=== PATIENT | female | born 1985 | race Caucasian/White ===

== ENCOUNTER 2018-04-29 22:44 | Inpatient (IN) ==
[2018-04-30] MEDS ORDERED: MEPERIDINE 50 MG/1 ML VIAL IV PRN (07:55)
[2018-04-30] MEDS ORDERED: BUTORPHANOL 2 MG/ML VIAL IV PRN (07:55)
[2018-04-30] MEDS ORDERED: ONDANSETRON 4 MG/2 ML VIAL IV PRN (07:55)
[2018-04-30] MEDS ORDERED: AMPICILLIN INJ 2,000 MG in SODIUM CHLORIDE 0.9% 100 ML IV SCH (08:00)
[2018-04-30 08:26] LABS: Basophils % 0.2 % (0.0-0.8); Eosinophils % 0.7 % (0.00-10.9); Hematocrit 29.9 VOL% (35.7-47.0); Hemoglobin 9.3 GM/DL (12.0-16.0); Immature Granulocytes % 1.4 %; Immature Granulocytes Absolute 0.08 #; Lymphocytes # 0.9 10*3/uL (1.4-4.0); Lymphocytes % 16.5 % (21.3-54.2); Mean Corpuscular HGB Conc 31.1 GM/DL (32-36); Mean Corpuscular Hemoglobin 26 PG (27-34); Mean Corpuscular Volume 83.8 FL (87-102); Mean Platelet Volume 11.5 FL (9.6-12.0); Monocytes # 0.5 10*3/uL (0.11-0.8); Monocytes % 8.1 % (1.7-12.7); Neutrophils # 4.2 10*3/uL (1.4-7.4); Neutrophils % 73.1 % (38.7-73.9); Platelet Count 166 T/CUMM (130-400); Red Blood Count 3.57 MC/CUMM (3.8-5.5); Red Cell Distribution Width 17.7 % (9.3-17.3); White Blood Count 5.7 T/CUMM (4-12)
[2018-04-30] MEDS: LACTATED RINGERS 1,000 ML IV SCH ×3 (08:40→16:35)
[2018-04-30] MEDS: OXYTOCIN/LR 20 UNIT/1,000 ML BAG IV SCH (09:20)
[2018-04-30] MEDS ORDERED: ONDANSETRON 4 MG/2 ML VIAL IV ONE (12:01)
[2018-04-30] MEDS ORDERED: ePHEDrine 50 MG/ML AMP IV PRN (12:01)
[2018-04-30] MEDS ORDERED: diphenhydrAMINE 50 MG/1 ML VIAL IV PRN ×2 (12:01)
[2018-04-30] MEDS ORDERED: FAMOTIDINE 20 MG/2 ML VIAL IV ONE (12:01)
[2018-04-30] MEDS ORDERED: hydrOXYzine HCL 25 MG/1 ML VIAL IM PRN (12:01)
[2018-04-30] MEDS ORDERED: LACTATED RINGERS 1,000 ML IV ONE (12:01)
[2018-04-30] MEDS ORDERED: CITRIC ACID/SODIUM CITRATE 30 ML UDCUP PO ONE (12:01)
[2018-04-30] MEDS ORDERED: PROMETHAZINE 25 MG/1 ML VIAL IM ONE (12:01)
[2018-04-30] MEDS ORDERED: fentaNYL 2 MCG/ROPIV 0.2% EPID 150 ML EPIDURAL SCH (12:30)
[2018-04-30] MEDS: AMPICILLIN INJ 1,000 MG in SODIUM CHLORIDE 0.9% 100 ML IV SCH ×3 (13:03→22:48)
[2018-04-30] MEDS ORDERED: LIDOCAINE 1% 50 ML VIAL ONE (20:09)
[2018-04-30] MEDS ORDERED: miSOPROStol 200 MCG TABLET ONE (20:09)
[2018-04-30] MEDS ORDERED: METHYLERGONOVINE 0.2 MG/1 ML AMP ONE (20:10)
[2018-04-30 20:57] LABS: Apearance,Urine CLEAR (Clear); Bacteria,Urine Occasional /HPF (Few); Bilirubin,Urine Negative (Negative); Blood, Urine Negative (Negative); Glucose,Urine (UA) Negative (Negative); Ketones,Urine 80 mg/dL (Negative); Mucus,Urine Occasional /LPF (Occasional); Nitrite,Urine Negative (Negative); Protein,Urine Negative; RBC,Urine <1 /HPF (0-4); Urine Color Yellow (Yellow); Urine Specific Gravity 1.011 (1.001-1.035); WBC,Urine <1 /HPF (0-6)
[2018-05-01] MEDS ORDERED: MEASLES/MUMPS/RUBELLA VACCINE 0.5 ML VIAL SUBCUT ONE (00:42)
[2018-05-01] MEDS ORDERED: oxyCODONE/ACETAMINOPHEN 5-325 MG TABLET PO PRN ×2 (00:42)
[2018-05-01] MEDS ORDERED: BENZOCAINE 20%/MENTHOL 0.5% SPRAY 56 GM CAN TOP PRN (00:42)
[2018-05-01] MEDS ORDERED: ACETAMINOPHEN 325 MG TABLET PO PRN (00:42)
[2018-05-01] MEDS ORDERED: HYDROCORTISONE 2.5% RECTAL CREAM 30 GM TUBE TOP PRN (00:42)
[2018-05-01] MEDS ORDERED: RHO(D) IMMUNE GLOBULIN 300 MCG SYRINGE IM ONE ×2 (00:42→11:30)
[2018-05-01] MEDS ORDERED: WITCH HAZEL PADS 100/JAR TOP PRN (00:42)
[2018-05-01] MEDS ORDERED: DOCUSATE/SENNA 50-8.6 MG TABLET PO PRN (00:42)
[2018-05-01] MEDS ORDERED: LANOLIN 50% CREAM 0.3 OZ TUBE TOP PRN (00:42)
[2018-05-01] MEDS ORDERED: METHYLERGONOVINE 0.2 MG/1 ML AMP IM ONE (00:42)
[2018-05-01] MEDS ORDERED: OXYTOCIN/LR 20 UNIT/1,000 ML BAG IV ONE (00:42)
[2018-05-01] MEDS ORDERED: BISACODYL 10 MG SUPP RECTAL PRN (00:42)
[2018-05-01] MEDS: IBUPROFEN 800 MG TABLET PO PRN ×4 (02:40→23:03)
[2018-05-01 05:22] LABS: Basophils % 0.2 % (0.0-0.8); Eosinophils % 0.2 % (0.00-10.9); Hemoglobin 10.1 GM/DL (12.0-16.0); Immature Granulocytes % 0.5 %; Immature Granulocytes Absolute 0.05 #; Lymphocytes # 0.8 10*3/uL (1.4-4.0); Lymphocytes % 7.8 % (21.3-54.2); Mean Corpuscular HGB Conc 30.6 GM/DL (32-36); Mean Corpuscular Hemoglobin 26 PG (27-34); Mean Corpuscular Volume 85.9 FL (87-102); Mean Platelet Volume 11.2 FL (9.6-12.0); Monocytes # 0.7 10*3/uL (0.11-0.8); Monocytes % 6.5 % (1.7-12.7); NRBC # 0.02 10*3/uL; Neutrophils # 8.8 10*3/uL (1.4-7.4); Neutrophils % 84.8 % (38.7-73.9); Platelet Count 138 T/CUMM (130-400); Red Blood Count 3.84 MC/CUMM (3.8-5.5); Red Cell Distribution Width 17.7 % (9.3-17.3); White Blood Count 10.4 T/CUMM (4-12)
[2018-05-01] MEDS: DOCUSATE SODIUM 100 MG CAPSULE PO SCH ×2 (09:14→20:31)
[2018-05-01] MEDS: MULTIVITAMIN (PRENATAL) TABLET PO SCH (09:15)
[2018-05-02] MEDS: LACTATED RINGERS 1,000 ML IV SCH ×7 (02:34→02:37)
[2018-05-02] MEDS: OXYTOCIN/LR 20 UNIT/1,000 ML BAG IV SCH (02:35)
[2018-05-02] MEDS: MULTIVITAMIN (PRENATAL) TABLET PO SCH (08:11)
[2018-05-02] MEDS: DOCUSATE SODIUM 100 MG CAPSULE PO SCH ×2 (08:11→20:36)
[2018-05-02] MEDS: IBUPROFEN 800 MG TABLET PO PRN (15:00)
[2018-05-03] MEDS: IBUPROFEN 800 MG TABLET PO PRN ×2 (03:45→09:56)
[2018-05-03 08:15] VITALS: BP 114/65
[2018-05-03] MEDS: DOCUSATE SODIUM 100 MG CAPSULE PO SCH (09:23)
[2018-05-03] MEDS: MULTIVITAMIN (PRENATAL) TABLET PO SCH (09:23)
== END 2018-05-03 10:55 | disposition home or self-care (01) | DRG 775 ==
LOC: N.LDOUT 22:44 → N.LD 22:53 → N.OB 05-01 01:28
PROVIDERS: ADMIT Obstetrics & Gynecology; ATTEND Obstetrics & Gynecology